=== PATIENT | female | born 1980 | race African-American/Black ===

== ENCOUNTER 2016-08-28 11:49 | Emergency (ER) | payer MEDICAID ==
[~2016-08-28] VITALS: Ht 160 cm; Wt 110.0 kg
[2016-08-28] MEDS ORDERED: CLOP75TA33 PO (11:56)
[2016-08-28] MEDS ORDERED: NORE5TAB3 PO (11:56)
[2016-08-28] MEDS ORDERED: VALS40TA4 PO (11:56)
[2016-08-28] MEDS ORDERED: AMLO2.5T45 PO (11:56)
[2016-08-28] MEDS ORDERED: CYCL5TAB PO (11:56)
[2016-08-28] MEDS ORDERED: ATEN-42 PO (11:56)
[2016-08-28] MEDS ORDERED: ATOR10TA69 PO (11:56)
[2016-08-28 13:03] LABS: BASOPHILS % 1.5 % (0.0-2.0); EOSINOPHILS % 0.8 % (0.0-5.0); HEMATOCRIT. 33.5 % (36.0-48.0); HEMOGLOBIN. 10.9 g/dL (12.0-16.0); LYMPHOCYTES % 32.9 % (20.0-50.0); MEAN CORPUSCULAR HEMOGLOBIN 27.8 pg (28.0-32.0); MEAN CORPUSCULAR HGB CONC 32.4 g/dL (31.0-37.0); MEAN PLATELET VOLUME 8.3 fl (7.4-10.4); MONOCYTES % 6.7 % (2.0-8.0); NEUTROPHILS % 58.1 % (40.0-76.0); PLATELET 341 x1000/uL (130-400); RED CELL DISTRIBUTION WIDTH 15.4 % (11.6-14.6); WHITE BLOOD COUNT 12.2 x1000/uL (4.5-11.0)
[2016-08-28 13:07] LABS: CHLORIDE 107 mEq/L (98-107); INDEX HEMOLYSI 1 (1-3); INDEX ICTERIC 1 (1-4); INDEX LIPEMIC 1 (1-3)
[2016-08-28 13:09] LABS: ALBUMIN 3.3 g/dL (3.4-5.0); ANION GAP 7; CALCIUM 8.6 mg/dL (8.5-10.1); CARBON DIOXIDE 31 mEq/L (21-32); PROTHROMBIN TIME 10.6 sec
[2016-08-28 13:10] LABS: UREA NITROGEN BLOOD 14 mg/dL (7-21)
[2016-08-28 13:15] LABS: ALANINE AMINOTRANSFERASE 53 IU/L (13-61); eGFR > 60 mL/min (>60)
[2016-08-28 14:30] VITALS: BP 134/78
[2016-08-28] MEDS ORDERED: KETOROLAC 60MG/2ML VIAL IM ONE (14:30)
[2016-08-28 14:57] LABS: CLARITY URINE CLOUDY (CLEAR); COLOR URINE DARK YELLOW (YELLOW); GLUCOSE URINE 3+ (NEGATIVE); KETONES URINE TRACE (NEGATIVE); LEUKOCYTE ESTERASE URINE NEGATIVE (NEGATIVE); NITRITE URINE NEGATIVE (NEGATIVE); OCCULT BLOOD URINE NEGATIVE (NEGATIVE); PH URINE 6.5 (4.5-8.0); PROTEIN URINE 1+ (NEGATIVE); SPECIFIC GRAVITY URINE 1.034 (1.005-1.030)
[2016-08-28 15:28] LABS: SQUAMOUS EPITHELIAL CELL URINE 3+ /lpf (RARE/1+)
[2016-08-28 15:29] LABS: BACTERIA URINE 3+; MUCUS URINE 1+ /lpf (< = 2+)
[2016-08-28 15:30] LABS: RBC URINE 0-2 /hpf (0-2); WBC URINE 0-2 /hpf (0-2)
== END 2016-08-28 16:35 | disposition home or self-care (01) ==
LOC: ER 11:51
DX: S82.892A Other fracture of left lower leg, initial encounter for closed fracture (principal); I10 Essential (primary) hypertension; Z79.899 Other long term (current) drug therapy; Y99.8 Other external cause status; Y92.9 Unspecified place or not applicable; Y93.89 Activity, other specified; W01.0XXA Fall on same level from slipping, tripping and stumbling without subsequent striking against object, initial encounter
CPT/HCPCS: 36415; 70450; 73610; 73630; 80053; 81001; 81025; 85025; 85610; 93005; 96372; 99285; J1885

== ENCOUNTER 2017-06-15 21:19 | Emergency (ER) | payer MEDICAID ==
[~2017-06-15] VITALS: Ht 167.6 cm; Wt 118.0 kg
[~2017-06-15 21:19] MED LIST: AMLO2.5T45 PO; ATEN-42 PO; ATOR10TA69 PO; CLOP75TA33 PO; CYCL5TAB PO; NORE5TAB3 PO; VALS40TA4 PO
[2017-06-15 21:58] VITALS: BP 133/75
== END 2017-06-15 22:40 | disposition left against medical advice (07) ==
LOC: ER 21:27
DX: Z53.21 Procedure and treatment not carried out due to patient leaving prior to being seen by health care provider (principal); I10 Essential (primary) hypertension; Z86.73 Personal history of transient ischemic attack (TIA), and cerebral infarction without residual deficits

== ENCOUNTER 2018-01-17 10:31 | Emergency (ER) | payer MEDICAID ==
[~2018-01-17] VITALS: Ht 157.5 cm; Wt 115.0 kg
[2018-01-17] MEDS ORDERED: KETOROLAC 60MG/2ML VIAL IM ONE (13:45)
[2018-01-17 13:59] VITALS: BP 152/99
[2018-01-17] MEDS ORDERED: CYCLOBENZAPRINE 10MG TABLET PO SCH (14:00)
[2018-01-17 14:22] LABS: CLARITY URINE CLEAR (CLEAR); COLOR URINE YELLOW (YELLOW); KETONES URINE 3+ (NEGATIVE); LEUKOCYTE ESTERASE URINE NEGATIVE (NEGATIVE); NITRITE URINE NEGATIVE (NEGATIVE); OCCULT BLOOD URINE 2+ (NEGATIVE); PROTEIN URINE NEGATIVE (NEGATIVE); SPECIFIC GRAVITY URINE 1.047 (1.005-1.030); UROBILINOGEN URINE 0.2 E.U./dL (0.2-1.0)
== END 2018-01-17 14:33 | disposition home or self-care (01) ==
LOC: ER 10:31
DX: M54.5 Low back pain (principal); I10 Essential (primary) hypertension; E78.00 Pure hypercholesterolemia, unspecified; Z86.73 Personal history of transient ischemic attack (TIA), and cerebral infarction without residual deficits
CPT/HCPCS: 81003; 81025; 96372; 99283; J1885

== ENCOUNTER 2019-05-02 10:52 | Emergency (ER) | payer MEDICAID ==
[~2019-05-02] VITALS: Ht 160 cm; Wt 108.0 kg
[2019-05-02] MEDS ORDERED: KETOROLAC 60MG/2ML VIAL IM ONE (12:30)
[2019-05-02 12:47] VITALS: BP 149/84
== END 2019-05-02 12:51 | disposition home or self-care (01) ==
LOC: ER 12:24
DX: J06.9 Acute upper respiratory infection, unspecified (principal); I10 Essential (primary) hypertension; Z79.899 Other long term (current) drug therapy
CPT/HCPCS: 96372; 99283; J1885

== ENCOUNTER 2020-02-21 16:21 | Emergency (ER) | payer MEDICAID ==
[~2020-02-21] VITALS: Ht 160 cm; Wt 110.0 kg
[2020-02-21] MEDS ORDERED: HYDROCODONE/ACETAMINOPHEN 5/325MG TABLET PO STA (18:26)
[2020-02-21] MEDS ORDERED: KETOROLAC 60MG/2ML VIAL IM STA (19:19)
[2020-02-21 20:58] VITALS: BP 141/97
== END 2020-02-21 21:01 | disposition home or self-care (01) ==
LOC: ER 16:21
DX: S93.401A Sprain of unspecified ligament of right ankle, initial encounter (principal); S93.601A Unspecified sprain of right foot, initial encounter; E78.00 Pure hypercholesterolemia, unspecified; I10 Essential (primary) hypertension; W18.31XA Fall on same level due to stepping on an object, initial encounter; Y93.9 Activity, unspecified; Y92.9 Unspecified place or not applicable; Z86.73 Personal history of transient ischemic attack (TIA), and cerebral infarction without residual deficits; Z90.49 Acquired absence of other specified parts of digestive tract
CPT/HCPCS: 73610; 73630; 96372; 99284; J1885

== ENCOUNTER 2020-06-06 08:45 | Emergency (ER) | payer MEDICAID ==
[~2020-06-06] VITALS: Ht 157.5 cm; Wt 114.0 kg
[2020-06-06] MEDS ORDERED: CYCLOBENZAPRINE 10MG TABLET PO STA (09:05)
[2020-06-06] MEDS ORDERED: KETOROLAC 60MG/2ML VIAL IM STA (09:05)
[2020-06-06 09:59] LABS: CLARITY URINE CLOUDY (CLEAR); COLOR URINE YELLOW (YELLOW); KETONES URINE 2+ (NEGATIVE); LEUKOCYTE ESTERASE URINE NEGATIVE (NEGATIVE); NITRITE URINE NEGATIVE (NEGATIVE); OCCULT BLOOD URINE NEGATIVE (NEGATIVE); PH URINE 5.5 (4.5-8.0); PROTEIN URINE 1+ (NEGATIVE)
[2020-06-06 11:56] LABS: BASOPHILS % 0.5 % (0.0-2.0); EOSINOPHILS % 0.9 % (0.0-5.0); HEMATOCRIT. 36.8 % (36.0-48.0); LYMPHOCYTES % 43.6 % (20.0-50.0); MEAN CORPUSCULAR VOLUME 88.8 fL (81.0-99.0); MEAN PLATELET VOLUME 9.1 fl (7.4-10.4); MONOCYTES % 7.1 % (2.0-8.0); NEUTROPHILS % 47.9 % (40.0-76.0); PLATELET 271 x1000/uL (130-400); RED BLOOD CELL COUNT 4.14 mill/uL (4.2-5.4); RED CELL DISTRIBUTION WIDTH 13.6 % (11.6-14.6)
[2020-06-06 12:03] LABS: CHLORIDE 102 mEq/L (98-107)
[2020-06-06] MEDS ORDERED: NAPR500T7 PO ×2 (12:23)
[2020-06-06] MEDS ORDERED: GABA-532 PO (12:23)
[2020-06-06 12:42] VITALS: BP 122/74
== END 2020-06-06 12:47 | disposition home or self-care (01) ==
LOC: ER 08:45
DX: M54.5 Low back pain (principal); M54.32 Sciatica, left side; E11.9 Type 2 diabetes mellitus without complications; R07.89 Other chest pain; E78.00 Pure hypercholesterolemia, unspecified; I10 Essential (primary) hypertension; Z86.73 Personal history of transient ischemic attack (TIA), and cerebral infarction without residual deficits; Z90.49 Acquired absence of other specified parts of digestive tract
CPT/HCPCS: 36415; 80048; 81003; 81025; 85025; 93005; 96372; 99284; J1885

== ENCOUNTER 2020-06-08 06:49 | Emergency (ER) | payer MEDICAID ==
[~2020-06-08] VITALS: Ht 167.6 cm; Wt 85.0 kg
[~2020-06-08 06:49] MED LIST changes: +GABA-532 PO; +NAPR500T7 PO
[2020-06-08] MEDS ORDERED: MORPHINE SULFATE 10 MG/ML CPJ IM ONE (07:45)
[2020-06-08 08:08] LABS: CLARITY URINE CLEAR (CLEAR); COLOR URINE YELLOW (YELLOW); KETONES URINE 1+ (NEGATIVE); LEUKOCYTE ESTERASE URINE NEGATIVE (NEGATIVE); NITRITE URINE NEGATIVE (NEGATIVE); OCCULT BLOOD URINE NEGATIVE (NEGATIVE); PH URINE 6.5 (4.5-8.0); PROTEIN URINE NEGATIVE (NEGATIVE); SPECIFIC GRAVITY URINE 1.034 (1.005-1.030)
[2020-06-08] MEDS ORDERED: CYCL10TA7 MT (09:04)
[2020-06-08] MEDS ORDERED: T3 PO (09:05)
[2020-06-08] MEDS ORDERED: NAPR-1176 MT (09:06)
[2020-06-08 09:10] VITALS: BP 194/129
== END 2020-06-08 09:21 | disposition home or self-care (01) ==
LOC: ER 06:49
DX: M54.5 Low back pain (principal); M54.16 Radiculopathy, lumbar region; I10 Essential (primary) hypertension; E78.00 Pure hypercholesterolemia, unspecified; Z86.73 Personal history of transient ischemic attack (TIA), and cerebral infarction without residual deficits; Z90.49 Acquired absence of other specified parts of digestive tract
CPT/HCPCS: 72131; 81003; 81025; 96372; 99284; J2270; Z7610

== ENCOUNTER 2022-05-10 14:07 | Emergency (ER) | payer MEDICAID ==
[~2022-05-10] VITALS: Ht 160 cm; Wt 108.0 kg
[~2022-05-10 14:07] MED LIST changes: +CYCL10TA21 MT; -CYCL5TAB PO; +NAPR-1176 MT; -NAPR500T7 PO; +T3 PO
[2022-05-10 14:10] VITALS: BP 140/82
== END 2022-05-10 17:07 | disposition left against medical advice (07) ==
LOC: ER 14:07
DX: Z53.21 Procedure and treatment not carried out due to patient leaving prior to being seen by health care provider (principal)
CPT/HCPCS: 93005

== ENCOUNTER 2022-07-19 10:03 | Emergency (ER) | payer MEDICAID ==
[~2022-07-19] VITALS: Ht 160 cm; Wt 108.6 kg
[2022-07-19 10:10] VITALS: BP 129/86
[2022-07-19] MEDS ORDERED: ONDANSETRON HCL 4MG/2ML INJ IV ONE (10:15)
[2022-07-19] MEDS ORDERED: SODIUM CHLORIDE 0.9% 500 ML IV ONE (10:15)
[2022-07-19 11:06] LABS: BASOPHILS % 1.2 % (0.0-2.0); HEMATOCRIT. 31.4 % (36.0-48.0); HEMOGLOBIN. 10.2 g/dL (12.0-16.0); LYMPHOCYTES % 42.4 % (20.0-50.0); MEAN CORPUSCULAR HEMOGLOBIN 27.4 pg (28.0-32.0); MEAN PLATELET VOLUME 8.9 fl (7.4-10.4); MONOCYTES % 5.4 % (2.0-8.0); PLATELET 344 x1000/uL (130-400); RED BLOOD CELL COUNT 3.74 mill/uL (4.2-5.4); RED CELL DISTRIBUTION WIDTH 14.3 % (11.6-14.6)
[2022-07-19 11:10] LABS: HCG SCREEN NEGATIVE
[2022-07-19 11:16] LABS: CHLORIDE 108 mEq/L (98-107)
[2022-07-19 13:55] LABS: CLARITY URINE CLOUDY (CLEAR); COLOR URINE YELLOW (YELLOW); KETONES URINE TRACE (NEGATIVE); LEUKOCYTE ESTERASE URINE NEGATIVE (NEGATIVE); NITRITE URINE NEGATIVE (NEGATIVE); OCCULT BLOOD URINE NEGATIVE (NEGATIVE); PH URINE 5.5 (4.5-8.0); PROTEIN URINE 2+ (NEGATIVE); SPECIFIC GRAVITY URINE 1.032 (1.005-1.030)
[2022-07-19] MEDS ORDERED: IMOD MT (14:00)
[2022-07-19] MEDS ORDERED: IBUP-2029 MT ×2 (14:00→14:16)
[2022-07-19] MEDS ORDERED: LOPE2CAP MT (14:15)
== END 2022-07-19 14:30 | disposition home or self-care (01) ==
LOC: ER 10:03
DX: R19.7 Diarrhea, unspecified (principal); I10 Essential (primary) hypertension; Z86.73 Personal history of transient ischemic attack (TIA), and cerebral infarction without residual deficits; Z90.49 Acquired absence of other specified parts of digestive tract; Z79.899 Other long term (current) drug therapy
CPT/HCPCS: 36415; 80053; 81003; 83690; 84484; 84703; 85025; 99283; J7040

== ENCOUNTER 2023-09-09 10:23 | Emergency (ER) | payer MEDICAID ==
[~2023-09-09] VITALS: Ht 160 cm; Wt 99.8 kg
[~2023-09-09 10:23] MED LIST changes: +IBUP-2029 MT; +IMOD MT; +LOPE2CAP MT
[2023-09-09 10:31] VITALS: O2SAT 100
[2023-09-09] MEDS ORDERED: TRAM50TA3 MT (11:16)
[2023-09-09] MEDS: KETOROLAC 30MG/ML VIAL IM ONE (11:24)
[2023-09-09 12:08] VITALS: BP 148/87; PULSE 78; RESP 18; TEMP 98.7
== END 2023-09-09 12:12 | disposition home or self-care (01) ==
LOC: ER 10:31
DX: M25.511 Pain in right shoulder (principal); E11.9 Type 2 diabetes mellitus without complications; I10 Essential (primary) hypertension; Z79.899 Other long term (current) drug therapy; Z90.49 Acquired absence of other specified parts of digestive tract
CPT/HCPCS: 99283; 81025; 96372; J1885

== ENCOUNTER 2024-05-02 10:50 | Emergency (ER) | payer MEDICAID ==
[~2024-05-02] VITALS: Ht 160 cm; Wt 96.0 kg
[~2024-05-02 10:50] MED LIST changes: +ASPI-1406 MT; -CLOP75TA33 PO; +GABA-1180 PO; -GABA-532 PO; -IBUP-2029 MT; -IMOD MT; +LISI10TA26 PO; -NAPR-1176 MT; -NORE5TAB3 PO; -T3 PO; +TRAM50TA3 MT; -VALS40TA4 PO
[2024-05-02 11:01] VITALS: TEMP 36.9; O2SAT 97; O2SAT 99
[2024-05-02] MEDS ORDERED: METH-773 MT (12:24)
[2024-05-02] MEDS ORDERED: LIDO700A15 TP (12:24)
[2024-05-02] MEDS ORDERED: ACET-2708 MT (12:24)
[2024-05-02] MEDS ORDERED: DOCU-422 MT (12:27)
[2024-05-02 12:46] VITALS: BP 148/97; PULSE 104; RESP 16; TEMP 98.5
[2024-05-02] MEDS: ACETAMINOPHEN 325MG TABLET PO ONE (12:46)
[2024-05-02] MEDS: LIDOCAINE 5% PATCH TOP SCH (12:46)
[2024-05-02] MEDS: METHOCARBAMOL 500MG TABLET PO ONE (12:46)
[2024-05-02] MEDS: KETOROLAC 30MG/ML VIAL IM ONE (12:46)
== END 2024-05-02 13:11 | disposition home or self-care (01) ==
LOC: ER 10:50
DX: G89.29 Other chronic pain (principal); E11.9 Type 2 diabetes mellitus without complications; F12.90 Cannabis use, unspecified, uncomplicated; I10 Essential (primary) hypertension; Z79.82 Long term (current) use of aspirin; Z79.899 Other long term (current) drug therapy; Z86.73 Personal history of transient ischemic attack (TIA), and cerebral infarction without residual deficits; Z90.49 Acquired absence of other specified parts of digestive tract
CPT/HCPCS: 99284; 81025; 96372; J1885

== ENCOUNTER 2024-05-16 10:08 | Emergency (ER) | payer MEDICAID ==
[~2024-05-16] VITALS: Ht 157.5 cm; Wt 96.0 kg
[~2024-05-16 10:08] MED LIST changes: +ACET-2708 MT; +DOCU-422 MT; +LIDO700A15 TP; +METH-773 MT
[2024-05-16 10:34] VITALS: O2SAT 99
[2024-05-16 11:56] LABS: CLARITY URINE CLEAR (CLEAR); COLOR URINE YELLOW (YELLOW); PH URINE 5.5 (4.5-8.0); PROTEIN URINE 1+ (NEGATIVE); SPECIFIC GRAVITY URINE >=1.030 (1.005-1.030)
[2024-05-16 11:57] LABS: GLUCOSE URINE NEGATIVE (NEGATIVE); KETONES URINE TRACE (NEGATIVE); LEUKOCYTE ESTERASE URINE TRACE (NEGATIVE); NITRITE URINE NEGATIVE (NEGATIVE); OCCULT BLOOD URINE NEGATIVE (NEGATIVE); UROBILINOGEN URINE 0.2 E.U./dL (0.2-1.0)
[2024-05-16 12:00] LABS: WBC URINE 0-2 /hpf (0-2)
[2024-05-16 12:01] LABS: BACTERIA URINE 1+; SQUAMOUS EPITHELIAL CELL URINE 2+ /lpf (RARE/1+); YEAST URINE NONE SEEN
[2024-05-16] MEDS ORDERED: FLUC100T PO (13:35)
[2024-05-16] MEDS: KETOROLAC 30MG/ML VIAL IM ONE (13:44)
[2024-05-16 13:46] VITALS: BP 149/90; PULSE 83; RESP 18; TEMP 36.5; O2SAT 99
[2024-05-18 06:11] LABS: CHLAMYDIA TRACHOMATIS NAA Negative (Negative); NEISSERIA GONORRHOEAE NAA Negative (Negative)
== END 2024-05-16 13:47 | disposition home or self-care (01) ==
LOC: ER 10:08
DX: M54.50 Low back pain, unspecified (principal); N89.8 Other specified noninflammatory disorders of vagina; E11.9 Type 2 diabetes mellitus without complications; I10 Essential (primary) hypertension; F12.90 Cannabis use, unspecified, uncomplicated; Z79.82 Long term (current) use of aspirin; Z79.899 Other long term (current) drug therapy; Z86.73 Personal history of transient ischemic attack (TIA), and cerebral infarction without residual deficits; Z90.49 Acquired absence of other specified parts of digestive tract
CPT/HCPCS: 99283; 87491; 87591; 81003; 81025; 96372; J1885

== ENCOUNTER 2024-05-28 07:22 | Emergency (ER) | payer MEDICAID ==
[~2024-05-28] VITALS: Ht 160 cm; Wt 95.7 kg
[~2024-05-28 07:22] MED LIST changes: +FLUC100T PO
[2024-05-28 07:28] VITALS: TEMP 36.8; O2SAT 100
[2024-05-28] MEDS ORDERED: ATENOLOL 25MG TABLET PO ONE (07:30)
[2024-05-28] MEDS ORDERED: ONDANSETRON 4MG ODT PO ONE (07:30)
[2024-05-28] MEDS ORDERED: HYDROCODONE/ACETAMINOPHEN 5/325MG TABLET PO ONE (07:30)
[2024-05-28] MEDS: ATENOLOL 50 MG TABLET PO NR (08:08)
[2024-05-28] MEDS: DIAZEPAM 5 MG TABLET PO ONE (08:08)
[2024-05-28] MEDS: LISINOPRIL 10MG TABLET PO ONE (08:08)
[2024-05-28 08:13] VITALS: BP 169/96; PULSE 91; RESP 16
[2024-05-28] MEDS: KETOROLAC 30MG/ML VIAL IM ONE (08:13)
== END 2024-05-28 08:28 | disposition home or self-care (01) ==
LOC: ER 07:27
DX: M54.59 Other low back pain (principal); I10 Essential (primary) hypertension; E11.9 Type 2 diabetes mellitus without complications; F41.9 Anxiety disorder, unspecified; F12.90 Cannabis use, unspecified, uncomplicated; Z79.82 Long term (current) use of aspirin; Z79.899 Other long term (current) drug therapy; Z86.73 Personal history of transient ischemic attack (TIA), and cerebral infarction without residual deficits; Z90.49 Acquired absence of other specified parts of digestive tract
CPT/HCPCS: 96372; 99284; J1885; Z7610 ×2

== ENCOUNTER 2024-06-12 15:45 | Emergency (ER) | payer MEDICAID ==
[~2024-06-12] VITALS: Ht 157.5 cm; Wt 69.0 kg
[2024-06-12 15:51] VITALS: BP 160/94; PULSE 104; RESP 18; TEMP 36.6; O2SAT 100; O2SAT 99
[2024-06-12 16:36] LABS: BASOPHILS % 0.9 % (0.0-2.0); EOSINOPHILS % 1.6 % (0.0-5.0); HEMATOCRIT. 31.9 % (36.0-48.0); HEMOGLOBIN. 10.3 g/dL (12.0-16.0); MEAN CORPUSCULAR HEMOGLOBIN 27.5 pg (28.0-32.0); MEAN CORPUSCULAR HGB CONC 32.2 g/dL (31.0-37.0); MEAN CORPUSCULAR VOLUME 85.3 fL (81.0-99.0); MEAN PLATELET VOLUME 8.2 fl (7.4-10.4); NEUTROPHILS % 52.5 % (40.0-76.0); PLATELET 332 x1000/uL (130-400); RED BLOOD CELL COUNT 3.75 mill/uL (4.2-5.4); RED CELL DISTRIBUTION WIDTH 14.9 % (11.6-14.6); WHITE BLOOD COUNT 6.6 x1000/uL (4.5-11.0)
[2024-06-12 16:49] LABS: CHLORIDE 104 mEq/L (98-107); POTASSIUM 3.6 mEq/L (3.5-5.1); SODIUM 140 mEq/L (136-145)
[2024-06-12 16:50] LABS: CALCIUM 8.9 mg/dL (8.7-10.4); CARBON DIOXIDE 26 mEq/L (21-32)
[2024-06-12 16:55] LABS: CREATININE 0.7 mg/dL (0.6-1.0); GLUCOSE 82 mg/dL (70-105); UREA NITROGEN BLOOD 14 mg/dL (9-23)
[2024-06-12 17:16] LABS: CLARITY URINE TURBID (CLEAR); COLOR URINE YELLOW (YELLOW); GLUCOSE URINE NEGATIVE (NEGATIVE); KETONES URINE TRACE (NEGATIVE); LEUKOCYTE ESTERASE URINE NEGATIVE (NEGATIVE); NITRITE URINE NEGATIVE (NEGATIVE); OCCULT BLOOD URINE NEGATIVE (NEGATIVE); PH URINE 5.5 (4.5-8.0); PROTEIN URINE 1+ (NEGATIVE)
[2024-06-12 17:29] LABS: BACTERIA URINE TRACE; RBC URINE 0-2 /hpf (0-2); SQUAMOUS EPITHELIAL CELL URINE 1+ /lpf (RARE/1+); WBC URINE NONE SEEN /hpf (0-2)
[2024-06-12] MEDS ORDERED: ONDA-239 PO (18:01)
[2024-06-12] MEDS ORDERED: DICY20TA2 MT (18:01)
== END 2024-06-12 18:11 | disposition home or self-care (01) ==
LOC: ER 15:45
DX: R11.2 Nausea with vomiting, unspecified (principal); R19.7 Diarrhea, unspecified; R10.30 Lower abdominal pain, unspecified; I10 Essential (primary) hypertension; E11.9 Type 2 diabetes mellitus without complications; F41.9 Anxiety disorder, unspecified; F12.90 Cannabis use, unspecified, uncomplicated; Z86.73 Personal history of transient ischemic attack (TIA), and cerebral infarction without residual deficits; Z79.82 Long term (current) use of aspirin; Z90.49 Acquired absence of other specified parts of digestive tract; Z79.899 Other long term (current) drug therapy
CPT/HCPCS: 80048; 81003; 85025; 36415; 99283; Z7610

== ENCOUNTER 2024-06-24 22:04 | Emergency (ER) | payer MEDICAID ==
[~2024-06-24] VITALS: Ht 160 cm; Wt 96.8 kg
[~2024-06-24 22:04] MED LIST changes: +DICY20TA2 MT; +ONDA-239 PO
[2024-06-24 22:15] VITALS: TEMP 36.9; O2SAT 99
[2024-06-24 22:17] VITALS: O2SAT 99
[2024-06-25] MEDS ORDERED: MORPHINE SULFATE 4 MG/ML INJ (FOR IV/IM USE) IV STA (00:22)
[2024-06-25] MEDS ORDERED: ONDANSETRON HCL 4MG/2ML INJ IV STA (00:22)
[2024-06-25] MEDS: ONDANSETRON 4MG ODT PO ONE (01:25)
[2024-06-25 01:33] VITALS: BP 136/84; PULSE 94; RESP 18
[2024-06-25] MEDS: KETOROLAC 30MG/ML VIAL IM STA ×2 (01:33)
== END 2024-06-25 01:44 | disposition home or self-care (01) ==
LOC: ER 22:04
DX: M54.50 Low back pain, unspecified (principal); R10.9 Unspecified abdominal pain; E11.9 Type 2 diabetes mellitus without complications; I10 Essential (primary) hypertension; F12.90 Cannabis use, unspecified, uncomplicated; Z79.82 Long term (current) use of aspirin; Z79.899 Other long term (current) drug therapy; Z86.73 Personal history of transient ischemic attack (TIA), and cerebral infarction without residual deficits; Z90.49 Acquired absence of other specified parts of digestive tract
CPT/HCPCS: 99284; 96372; J1885; Q0162; J2405

== ENCOUNTER 2024-09-15 14:17 | Emergency (ER) | payer MEDICAID ==
[~2024-09-15] VITALS: Ht 160 cm; Wt 90.7 kg
[~2024-09-15 14:17] MED LIST changes: +LIDO-53 TP; -LIDO700A15 TP
[2024-09-15 14:21] VITALS: O2SAT 98
[2024-09-15] MEDS: METOCLOPRAMIDE HCL 10MG/2ML VIAL IV ONE (15:24)
[2024-09-15] MEDS: KETOROLAC 30MG/ML VIAL IV ONE (15:24)
[2024-09-15 15:32] LABS: BASOPHILS % 1.2 % (0.0-2.0); EOSINOPHILS % 0.9 % (0.0-5.0); HEMATOCRIT. 29.6 % (36.0-48.0); HEMOGLOBIN. 9.8 g/dL (12.0-16.0); LYMPHOCYTES % 33.6 % (20.0-50.0); MEAN CORPUSCULAR HEMOGLOBIN 28.2 pg (28.0-32.0); MEAN CORPUSCULAR VOLUME 85.4 fL (81.0-99.0); MONOCYTES % 5.7 % (2.0-8.0); NEUTROPHILS % 58.6 % (40.0-76.0); PLATELET 354 x1000/uL (130-400); RED BLOOD CELL COUNT 3.46 mill/uL (4.2-5.4); RED CELL DISTRIBUTION WIDTH 14.4 % (11.6-14.6); WHITE BLOOD COUNT 6.8 x1000/uL (4.5-11.0)
[2024-09-15 15:38] LABS: CHLORIDE 108 mEq/L (98-107); HCG SCREEN NEGATIVE; POTASSIUM 3.5 mEq/L (3.5-5.1); SODIUM 142 mEq/L (136-145)
[2024-09-15 15:39] LABS: CALCIUM 9.2 mg/dL (8.7-10.4); CARBON DIOXIDE 26 mEq/L (21-32)
[2024-09-15 15:44] LABS: CREATININE 0.9 mg/dL (0.6-1.0); GLUCOSE 124 mg/dL (70-105); UREA NITROGEN BLOOD 14 mg/dL (9-23)
[2024-09-15 15:50] LABS: TROPONIN I HIGH SENSITIVITY < 4 ng/L (3.0-34)
[2024-09-15 16:52] LABS: TROPONIN I HIGH SENSITIVITY < 4 ng/L (3.0-34)
[2024-09-15] MEDS ORDERED: LORA-249 MT (17:19)
[2024-09-15 17:22] VITALS: BP 171/106; PULSE 83; RESP 17; TEMP 36.7; O2SAT 99
== END 2024-09-15 17:24 | disposition home or self-care (01) ==
LOC: ER 14:17
DX: R07.9 Chest pain, unspecified (principal); I10 Essential (primary) hypertension; F41.9 Anxiety disorder, unspecified; E11.9 Type 2 diabetes mellitus without complications; Z90.49 Acquired absence of other specified parts of digestive tract; Z86.73 Personal history of transient ischemic attack (TIA), and cerebral infarction without residual deficits; Z79.899 Other long term (current) drug therapy
CPT/HCPCS: 99285; 96374; 71045; 96375; 80048; 84703; 83880; 85025; 85379; 84484; 36415; 93005; J1885; J2765

== ENCOUNTER 2024-10-12 14:25 | Emergency (ER) | payer MEDICAID ==
[~2024-10-12] VITALS: Ht 160 cm; Wt 96.0 kg
[~2024-10-12 14:25] MED LIST changes: +LORA-249 MT
[2024-10-12 14:34] VITALS: O2SAT 100
[2024-10-12 14:37] VITALS: TEMP 36.9; O2SAT 99
[2024-10-12] MEDS: IBUPROFEN 600MG TABLET PO SCH (15:14)
[2024-10-12 15:36] VITALS: BP 177/98; PULSE 76; RESP 16
[2024-10-12] MEDS: KETOROLAC 30MG/ML VIAL IM ONE (15:36)
[2024-10-12] MEDS: LIDOCAINE HCL/PF 1% 10 MG/ML 5ML VIAL INFIL ONE (16:32)
[2024-10-12] MEDS: BACITRACIN ZINC OINT UDPKT TOP ONE (16:32)
[2024-10-12] MEDS ORDERED: BO1 TP (17:08)
[2024-10-12] MEDS ORDERED: IBUP-2029 MT (17:10)
== END 2024-10-12 17:35 | disposition home or self-care (01) ==
LOC: ER 14:25
DX: S91.202A Unspecified open wound of left great toe with damage to nail, initial encounter (principal); E11.9 Type 2 diabetes mellitus without complications; F41.9 Anxiety disorder, unspecified; I10 Essential (primary) hypertension; Z79.899 Other long term (current) drug therapy; Z86.73 Personal history of transient ischemic attack (TIA), and cerebral infarction without residual deficits; Z90.49 Acquired absence of other specified parts of digestive tract; W20.8XXA Other cause of strike by thrown, projected or falling object, initial encounter; Y93.89 Activity, other specified; Y92.89 Other specified places as the place of occurrence of the external cause; Y99.8 Other external cause status
CPT/HCPCS: 11730; 96372; 99284; J1885; J2003; Z7610 ×4

== ENCOUNTER 2024-11-06 14:47 | Emergency (ER) | payer MEDICAID ==
[~2024-11-06] VITALS: Ht 160 cm; Wt 95.0 kg
[~2024-11-06 14:47] MED LIST changes: +BO1 TP; +IBUP-2029 MT
[2024-11-06 14:59] VITALS: O2SAT 99
[2024-11-06] MEDS: KETOROLAC 30MG/ML VIAL IM ONE ×2 (16:37→16:38)
[2024-11-06 16:40] VITALS: BP 150/91; PULSE 79; RESP 18; TEMP 36.9; O2SAT 99
[2024-11-06] MEDS ORDERED: GABA-1180 MT (16:41)
== END 2024-11-06 16:55 | disposition home or self-care (01) ==
LOC: ER 14:47
DX: G89.29 Other chronic pain (principal); M54.50 Low back pain, unspecified; E11.9 Type 2 diabetes mellitus without complications; F41.9 Anxiety disorder, unspecified; I10 Essential (primary) hypertension; Z90.49 Acquired absence of other specified parts of digestive tract; Z86.73 Personal history of transient ischemic attack (TIA), and cerebral infarction without residual deficits; Z79.899 Other long term (current) drug therapy; Z79.82 Long term (current) use of aspirin
CPT/HCPCS: 99284; 81025; 96372; J1885

== ENCOUNTER 2024-11-25 12:18 | Emergency (ER) | payer MEDICAID ==
[~2024-11-25] VITALS: Ht 157.5 cm; Wt 93.0 kg
[~2024-11-25 12:18] MED LIST changes: +GABA-1180 MT
[2024-11-25 12:25] VITALS: TEMP 36.7; O2SAT 98
[2024-11-25] MEDS: DEXAMETHASONE 4MG TABLET PO ONE (16:56)
[2024-11-25] MEDS: KETOROLAC 30MG/ML VIAL IM ONE (16:58)
[2024-11-25] MEDS: KETOROLAC 30MG/ML VIAL IV ONE (16:58)
[2024-11-25] MEDS: LIDOCAINE 5% PATCH TOP SCH (16:59)
[2024-11-25 17:27] VITALS: BP 130/87; PULSE 77; RESP 16; O2SAT 100
[2024-11-29] MEDS ORDERED: HYDR-4005 MT (11:17)
[2024-11-29] MEDS ORDERED: HYDR-4009 MT (13:40)
[2024-11-30] MEDS ORDERED: HYDR-4005 MT (13:32)
== END 2024-11-25 17:28 | disposition home or self-care (01) ==
LOC: ER 12:18
DX: M54.42 Lumbago with sciatica, left side (principal); E11.9 Type 2 diabetes mellitus without complications; F41.9 Anxiety disorder, unspecified; I10 Essential (primary) hypertension; F12.90 Cannabis use, unspecified, uncomplicated; Z86.73 Personal history of transient ischemic attack (TIA), and cerebral infarction without residual deficits; Z90.49 Acquired absence of other specified parts of digestive tract; Z79.899 Other long term (current) drug therapy; Z79.82 Long term (current) use of aspirin
CPT/HCPCS: 99285; 96374; 93971; 81025; 96372; J1885; J8540